=== PATIENT | male | born 1945 | race Caucasian/White ===

== ENCOUNTER 2022-03-02 16:39 | Inpatient (IN) | payer MEDICARE, OTHER ==
[~2022-03-02] VITALS: Ht 175.3 cm; Wt 71.0 kg
--- NOTE | 2022-03-02 19:30 | NUR ---
pt ARRIVED FROM ED ON ED STRETCHER AND TANSFERRED VIA 4PA, TOLERATED WELL. pt ORIENTED TO ROOM, CALL LIGHT IN REACH AND VSS. ROSA ISELA ALSO IN ROOM AND ATTENTIVE. pt ON REGULAR DIET, FRESH ICE WATER PROVIDED PER pt REQUEST. NO ADDITIONAL NEEDS.
--- NOTE | 2022-03-02 20:27 | NUR ---
CALL RECEIVED FROM ED RN ARGENIS WHO WORKED ON [employer] AND CARED FOR pt IN ED EARLIER. PER MICHAEL MORE, pt HAD NEW BUNDLE BRANCH BLOCK WHICH WAS CONFIRMED W/ EKG, BUT pt HAS NO CARDIAC HX. DISCUSSED WITH DR PARRISH PER REQUEST OF [facility] PLAYERMICHAEL MORE, DR PARRISH DID NOT WANT A TROPONIN, BUT TELEPHONE ORDERS READ BACK FOR TELE MONITORING. ALSO UPDATED DR PARRISH ON RESULTS OF RIGHT FEMUR X-RAY, NO FRACTURE NOTED PER RESULTS. OKAY TO PLACE ICE PER MD FOR EDEMA/COMFORT. PER MD, NO LIMITATIONS W/ MOVEMENT, ENCOURAGE AMBULATION, AMBULATE TOLERATED. PRIMARY RN LAWANDA UPDATED.
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
--- NOTE | 2022-03-02 23:30 | NUR ---
PATIENT CALLED NURSE INTO ROOM AND REPORTED PAIN 8/10 SHARP IN RIGHT THIGH. PATIENT APPEARS TO BE BREATHING EVEN AND REGULAR, PULSE OX 98% ON RA, RR 16. ADMINISTERED 0.5 MG IV DILAUDID PER MAR FOR BREAKTHRU PAIN, 4MG ZOFRAN IV PER MAR, AND 1 TAB NORCO PO. PATIENT EATING SALTINE CRACKERS. VOIDED 200 ML OF DARK YELLOW URINE. PATIENT RESTING BACK, REFUSES FRESH ICE PACK. PEDAL PULSE AND POPLITEAL PULSE STRONG, SKIN WARM.
--- NOTE | 2022-03-03 00:29 | NUR ---
PATIENT NOW RESTING CALMLY WITH EYES CLOSED, UPON ENTERING ROOM PATIENT OPENED EYES AND REPORTED PAIN 2/10 ON PAIN SCALE AND VERBALIZED FEELING LIKE HE COULD GET SOME SLEEP.
--- NOTE | 2022-03-03 02:25 | NUR ---
INTO ROOM TO PROVIDE ASSESMENT, LUNG SOUNDS AUCULTATE CLEAR IN THE UPPER LOBES REBECA, COURSE AND DIMINISHED IN THE BASES. PROVIDED EDUCATION WITH INCENTIVE SPIROMETER. PATIENT ABLE TO INHALE AND HOLD WAFER AT 1500 ML. DISCUSSED BENEFITS OF TAKING DEEP BREATHS AND COUGHING. PREVENTION OF PNEAMONIA. PATIENT DEMONSTRATED UNDERSTANDING. OXYGEN SATURATION 98% RA, RR 16. PATIENT RATES PAIN 3/10 ON PAIN SCALE, REPORTS PAIN TOLERABLE AND ABLE TO SLEEP. NO OTHER NEEDS AT THIS TIME.
--- NOTE | 2022-03-03 04:07 | NUR ---
ROUNDED ON PATIENT TO ASSESS PAIN CONTROL. PATIENT RESTING WITH EYES CLOSED, APPEARS CALM, BREATHING EVEN AND REGULAR. 02 SATURATION ON CONTINIOUS PULSE OX 98% RR 18.
--- NOTE | 2022-03-03 05:34 | NUR ---
PATIENT AWAKE, REPORTS PAIN TOLERABLE. ADMINISTERED PAIN MEDICATION PER AUG, PATIENT PLANNING TO GET UP THIS MORNING. VSS WNL. ICE TO RIGHT THIGH, NOTED SWELLING AND EDEMA. LUNG SOUNDS DIMINISHED IN BASES REBECA. O2 SATURATION 100% ON ROOM AIR, RR 16
--- NOTE | 2022-03-03 07:37 | NUR ---
REPORT RECEIVED FROM MICHAEL WEBBER. PT SITTING UP ON EDGE OF BED. PT REPORTS 3/10 PAIN "NOW IN MY BACK." PT DENIES NAUSEA. OXGYEN SAUTRAITON OF 96% ON ROOM AIR. BUNDLE BRANCH BLOCK NOTED ON TELEMETRY WITH HR IN JOSH 60'S. PT DENIES ADDITIONAL NEEDS AT THIS TIME. CALL LIGHT WITHIN REACH. BED RAILS UP.
--- NOTE | 2022-03-03 09:26 | NUR ---
MORNING ASSESSMENT AND MEDICATION DUE. PT RESTING IN BED. REPORTS 3/10 PAIN IN BACK AND RIGHT LEG. PT DENIES NAUSEA BUT BEGINS TO FEEL NAUSEOUS WITH PAIN MEDICAITON ADMINISTRATION. PT UP TO CHAIR WITH FWW AND STAND BY ASSIST. PT REPORTS INCREASED PAIN TO RIGHT THIGH AREA WITH ACTIVITY. THIGH PAIN UP TO 7/10. RIGHT THIGH VERY FIRM TO TOUCH AND MUCH MORE SOWLLEN THAN LEFT LEG. RIGHT KNEE ALSO NOTED TO BE SWOLLEN. STRONG PEDIAL AND TIBILAIS PULSES NOTED. PT UNABLE TO LIFT LEG STRIGHT UP. STRONG PLANTAR AND DORSI FLEXION NOTED BILATERALLY ALTHOUGH WEAKER ON RIGHT SIDE. CAP REFILL >3 SECONDS ON RIGHT SIDE. PT ALERT AND OREINTED TO ALL. DENIES NUMBNESS AND TINGLING. LUNG SOUNDS DEMINISHED IN LOWER LOBES. OXGYEN SATURATION OF 97% ON ROOM AIR. CPOX IN PLACE. DEMINISED MORE ON RIGHT SIDE THAN LEFT. PT DEMONSTRATES USE OF I.S REACHIGN 1250ML X10. PT DENIES SHORTNESS OF BREATH BUT REPORTS HE IS "BREATHING SHALLOW." PT HAS BRADYCARDIC EPISODE DURING INCREASED PAIN WITH HR DROPPING TO THE 40'S. PT RECOVERS TO HR OF 50'S AFTER PAIN IS CONTROLLED. BUNDLE BRANCH BLOCK NOTED ON TELEMETRY MONITORING. PT DENIES CHEST PAIN. DR PARRISH CALLED AND UPDATED ON PT STATUS AND ASSESSMENT. DR PARRISH STATES SHE IS COMING IN TO EVALUATE PT. PT REMAINSUP TO CHAIR. DENIES DIZZINESS. CALL LIGHT WITHIN REACH.
--- NOTE | 2022-03-03 09:52 | NUR ---
PTS HEART RATE DROPPING AGAIN INTO THE 40'S. PT BACK TO BED WITH STAND AND PIVOT ASSIST. PT REPORTS NAUSEA. HEART RATE IMPROVES BACK TO THE 70'S. PT REPORTS SEVERE INCREASE IN RIGHT THIGH WITH ANY MOVEMENT. NAUSEA RESOLVES WITH REST. PT DENIES CHEST PAIN. AWIATING MD ARRIVAL. BED RAILS UP. CALL LIGHT WITHIN REACH.
--- NOTE | 2022-03-03 10:09 | NUR ---
THIS RN TO ROOM TO CHECK ON PT. PT GRIMICING WITH PAIN IN RIGHT THIGH. PT REPORTS 6/10 PAIN. RIGHT LEG VISUALLY MUCH LARGE THAN LEFT. TELEMETRY MONITORING CONTINUES TO SHOW BUNDLE BRANCH BLOCK WITH MD ARRIVED TO BEDSIDE. EKG ORDERED, ORDER PLACED, RT CALLED AND TO BEDSIDE. MD AT BEDSIDE PERFORMING ULTSOUND OF LEFT THIGH. EKG TAKEN AND HANDED DIRECTLY TO DR. PARRISH. PTS UPDATED ON PLAN OF CARE. PT VERBALIZES UNDERSTANDING OF PLAN OF CARE.
--- NOTE | 2022-03-03 10:47 | NUR ---
DR PARRISH AT BEDSIDE TO TRY TO REMOVE FLUID FROM RIGHT THIGH WITH NEEDLE ASPIRATION, UNSUCESSFUL. PAULINE WRAP APPLIED TO RIGHT THIGH BY DR PARRISH. NEW LAB ORDERS GIVEN, ENTERED AND REPEAT BACK PERFORMED. DR. PARRISH STATES TO GIVE ADDITIONL DOSE OF PAIN MEDICATION. 5ML LAB DRAW WITH 22G BUTTERFLY NEEDLE, GAUZE AND COBAN APPLIED. LABS VIALED AND SENT TO LAB BY SONIA TANG TECHNJEFF. EXTENSIVE EDUCATION DONE BY MD WITH PT AND FAMILY REGARDING FRACTURES AND PLAN OF CARE. NO ADDITONAL NEEDS AT THIS TIME. CALL LIGHT WITHIN REACH. BED RAILSUP.
--- NOTE | 2022-03-03 11:42 | NUR ---
PTS FAMILY TO NURSES STATION REPORTING PT IS HAVING INCREASED PAIN. PT NOW RATES RIGHT THIGH PAIN AT 7/10. STRONG PEDIAL PULSES NOTED, FOOT WARM TO TOUCH. PT DENIES NUBMENSS TO RIGHT LET STATING "IT JUST HURTS LIKE HELL." DR. PARRISH UPDATED AND TO BEDSIDE. LIDOCANE PATCH ORDERD. PT ASSISTED WITH REPOSITIONING WHICH HE STATES HELPS. AWAITING MEDICATION FROM PHARAMCY. NO ADDITONAL NEEDS AT THIS TIME. CALL LIGHT WITHIN REACH. BED RAILS UP.
--- NOTE | 2022-03-03 12:25 | NUR ---
THIS RN TO ROOM WITH LIDOCANE PATCH. PT REPORTS INCREASED PAIN. LEFT LEG SWOLLEN AND MORE FIRM. PLUSES REMAINS STRONG. SENSATION REMAINS INTACT. DR. PARRISH TO BEDSIDE. 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 PRESSURE GAUGE RETIREVED AND BEDSIDE PRESSURE MEASURE TO RIGHT THIGH READS >90. COATER OPERATOR CALLED TO PREP OR. CONSENT SIGNED. CG WIPE DOWN PERFORMED. PRE OP CHECK LIST PERFORMED. ADDITIONAL IV STARTED TO LEFT FORARM, BRISK BLOOD RETURN NOTED. OR FLUIDS, LR ON STRAIGHT TUBING STARTED PER DR. PARRISH. PT CONTINUES TO REPORTS 10/10 PAIN IN RIGHT THIGH. PT CONTINUES TO REPORT NASUEA, WHICH HE ATTRIBUTES TO THE PAIN. AWAITING OR TEAM ARRIVAL. NO ADDITONAL NEEDS. BED RAIL SUP. CALL LIGHT WIHTIN REACH.
--- NOTE | 2022-03-03 13:00 | NUR ---
KATTY, COIL CONNECTOR TO ROOM TO ELOCUTION TEACHER PT. REPORT GIVEN TO KATTY WHO STATES HIS QUESTIONS HAVE BEEN ANSWERED. PT TO OR.
--- NOTE | 2022-03-03 14:14 | NUR ---
I was able to visit with Rayray's while he was in the OR today. states that they are happy with the care Rayray has received. also states that she feels she will be able to care for him at home on discharge, she adds that Rayray has medicare and possible coverage through [facility], patient does not have workman's comp insurance.
--- NOTE | 2022-03-03 14:42 | NUR ---
03/03/22 1442 Estela Roy 1404 ARRIVED VIA BED FROM OR3 AT THIS TIME, NATURAL AIRWAY AT THIS TIME, AIRWAY HELP BY CHYNA, RN O2 VIA NC AT 4L'S. RT THIGH DRESSING CDI.
--- NOTE | 2022-03-03 15:14 | NUR ---
PT RETURNED FROM PACU. REPORT RECEIVED FROM MICHAEL DECKER. PT RESTING IN BED AND REPORTS 0/10 PAIN WELL NO NAUSEA. PT PLACED ON CPOX AND IS MAINTAINING OXGYEN SATURATIONS ABOVE 94% ON ROOM AIR. HEART RATE IN THE 90'S. DR. PARRISH AT BEDSIDE AND SATES TO DC TELEMETRY MONITORING. ADDITONAL ORDERS GIVEN TO CHAGNE LIDOCANE PATCHES TO PRN AND THAT PT IS NOT TO BE DISCHRAGED. DISCHARGE ORDER DC'D. LIDOCANE PATCH ORDER ADJUSTED. PT ALERT AND OREINTED TO ALL. LUNG SOUNDS CLEAR IN UPPER LOBES, DEMINISHED IN BASES, MORE SO ON RIGHT SIDE. HEART TONES REGULAR. HEART RATE NOW IN THE 90'S. TELE DC'D PER MD ORDER. STRONG PEDIAL AND TIBIAL PULSES NOTED BILATERALLY. PT REPORTS NORMAL SENSATION. STRONG PLANTAR AND DORSI FLEXION NOTED. DRESSING TO RIGHT THIGH C/D/I WITH NO DRAINAGE NOTED. CAPILLARY REFILL TO RIGHT FOOT NOW <3 SECONDS. PT WATCHING RODEO ON HIS PHONE. NO ADDITIONAL REQUESTS OR COMPLAINTS. CALL LIGHT WITHIN REACH. BED RAILS UP.
--- NOTE | 2022-03-03 16:13 | NUR ---
VITALS AND ASSESSMENT DUE. PT RESTING IN BED. PT CONTINUES TO REPORTS 0/10 PAIN IN BOTH RIGHT THIGH AND BACK. PT DENIES NEED FOR PAIN MEDICATION. DRESSING C/D/I WITH NO DRAINAGE NOTED. CMS INTACT, STRONG PEDIAL AND TIBIAL PULSES NOTED BILATERALLY. PT REPORTS NORMAL SENSATION. OXGYEN SATURATION ABOVE 94% ON ROOM AIR. ICE WATER REFILLED. NO ADDITIONAL REQUESTS OR COMPLAINTS. CALL LIGHT WITHIN REACH. BED RAILS UP.
--- NOTE | 2022-03-03 17:10 | NUR ---
VITALS AND ASSESSMENTS DUE. PT REPORTS / "PRESSURE" PAIN IN LEFT THIGH AND REQUESTS PAIN MEDICATION. DRESSING SHOWS 5CM X7CM AREA OF RED DRAIANGE ON POSTERIOR, PROXIMAL PART OF DRESSING. CMS REMAINS INTACT WITH STRONG PEDIAL AND TIBIAL PULSES NOTED. CAPILLARY REFILL LESS THAN 3 SECONDS. GENERALIZED SWELLING REMAINS. DRESSING OTHERWISE C/D/I. PAIN MEDICATION GIVEN. PT REPORTS "PAIN MEDICINE IS HELPING." NO ADDITIONAL NEEDS AT THIS TIME. CALL LIGHT WITHIN REACH. BED RAILS UP.
--- NOTE | 2022-03-03 17:36 | EKG ---
[facility] [address] [facility] [place] [address] Signed Sinus bradycardia Left bundle branch block Abnormal ECG No previous ECGs available Confirmed by MANDEEP FOSTER MD ([id number]) on 03/03/2022 5:36:27 PM Electronically Signed By: MANDEEP FOSTER MD 03/03/22 1736 PATIENT NAME: SUPRIYA EPSTEIN Electrocardiogram DATE OF : 49 PHYSICIAN: MANDEEP FOSTER MD REPORT #: [id number] REPORT IS CONFIDENTIAL AND NOT TO BE RELEASED WITHOUT AUTHORIZATION
--- NOTE | 2022-03-03 17:37 | EKG ---
[facility] [address] [facility] [place] [address] Signed Sinus bradycardia Left bundle branch block Abnormal ECG When compared with ECG of 02-MAR-2022 16:47, (Unconfirmed) No significant change was found Confirmed by MANDEEP FOSTER MD ([id number]) on 03/03/2022 5:37:32 PM Electronically Signed By: MANDEEP FOSTER MD 03/03/22 173 PATIENT NAME: SUPRIYA EPSTEIN Electrocardiogram DATE OF : 49 PHYSICIAN: MANDEEP FOSTER MD REPORT #: [id number] REPORT IS CONFIDENTIAL AND NOT TO BE RELEASED WITHOUT AUTHORIZATION
--- NOTE | 2022-03-03 18:04 | NUR ---
VITALS AND ASSESSMENT DUE. PT RESTING IN BED. PTS ARRIVED TO BEDSIDE AND IS UPDATED ON PLAN OF CARE. PT REPORTS 1/10 PAIN IN RIGHT THIGH. 0/10 PAIN IN BACK. PT DENIES NEED FOR ADDITIONAL PAIN MEDICAITON AT THIS TIME. DRESSING NOW ~15% SATURATED ON PROXIMAL POSTERIOR END OF DRESSING WITH RED DRAINAGE. CMS REMAINS INTACT, STRONG PEDIAL AND TIBILA PULSES NOTED. PLANTAR AND DORSIFLEXION UNCHANGED. PT DENIES ADDITIONAL REQUESTS OR COMPLAINTS. CALL LIGHT WITHIN REACH. BED RAILS UP.
--- NOTE | 2022-03-03 18:22 | NUR ---
DR PARRISH CALLED AND UPDATED ON PT STATUS, PAIN, AND DRESSING. NO ADDITIONAL NEW ORDERS. PT AND FAMILY UPDATED. CALL LIGHT WITHIN REACH. BED RAILS UP. NO ADDITIONAL REQUESTS OR COMPLAINTS.
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
--- NOTE | 2022-03-03 18:48 | NUR ---
LINENS CHANGED AND CHUX PLACED UNDER PT TO CATCH DRAINAGE. PT TOLERATED LINEN CHANGE WELL WITH ONGOING 1/10 PAIN TO RIGHT THIGHT. PT NOTED TO BE INSUFFICIENT WITH URINE OUTPUT. DR. PARRISH CALLED, NO ANSWER, AWAITING CALL BACK. PT ENCORUAGED TO DRINK PO FLUID AND STATES "I CAN DO THAT." NO ADDITIONAL NEEDS AT THIS TIME. CALL LIGHT WITHIN REACH. BED RAILS UP.
--- NOTE | 2022-03-03 18:53 | NUR ---
DR. PARRISH REACHED BY PHONE. DR PARRISH UPDATED ON PTS VOIDING STATUS. ORDERS GIVEN FOR 1000ML LR BOLUS NOW TO BE GIVEN OVER 3 HOURS. FLUIDS STARTED (SEE MAR). NO ADDITIONAL NEEDS AT THIS TIME. CALL LIGHT WITHIN REACH.
--- NOTE | 2022-03-03 19:24 | NUR ---
NATALIO AND I CHANGED PATIENT'S BED LINENS. A LITTLE BEFORE SHIFT CHANGE.
--- NOTE | 2022-03-03 20:35 | NUR ---
DRESSING TO RIGHT THIGH IS SATURATED AT THIGH, SUPER ABSORBAND PAD SATURATED WEIGHING 30 GRAMS. PATIENT ABLE TO TURN, REPORTS PAIN 3/10 ON PAIN SCALE PATIENT REPORTS TOLERABLE. LUNG SOUNDS DIMINISHED IN BASES BILATERALLY PATIENT DEMONSTRATED ICENTIVE SPIROMETER TO 1500 ML. FULL BODY ASSESMENT DONE. BOLUS INFUSING, PATIENT VOIDED 50 ML OF CONCENTRATED URINE. FRIEND INTO VISIT PATIENT, PATIENT CONVERSING EASILY. VSS WNL.
--- NOTE | 2022-03-03 22:20 | NUR ---
IV FLUID BOLUS COMPLETE, IV SITE WNL AND PUMP CLEARED. NO ADDITIONAL NEEDS, CALL LIGHT IN REACH.
--- NOTE | 2022-03-04 02:30 | NUR ---
0200 PATIENT REPORTS PAIN 5/10 ON PAIN SCALE, ADMINISTERED PO PAIN MEDICATION PER MAR. VS WNL. LUNG SOUNDS CLEAR UPPER LOBES, DIMINISHED IN BASES R SIDE GREATER THAN LEFT. PATIENT USING IS, ABLE TO FLOAT WAFER TO 1500 ML. PATIENT VOIDING QUANTITY SUFFICIENT, NOTED URINE APPEARS DARK AND CONCENTRATED. DRESSING TO RIGHT LEG IS SATURATED WITH BLOOD, SUPER ABSORBANT PAD WEIGHED [address] MLS[address] PARRISH MADE AWARE OF COLOR OF URINE AND EBL FROM SURGICAL SITE OF RIGHT THIGH ON THE ABSORBANT PADS. DR. PARRISH VERBALIZED THAT SHE WAS OKAY WITH THE URINE OUTPUT AND COLOR OF THE URINE. ALSO THAT THE AMOUNT OF EBL ON THE PADS WAS A GOOD SIGN. NO NEW ORDERS CONTINUE POC. REASSURED PATIENT AND UPDATED WITH WHAT DR. PARRISH VERBALIZED.
--- NOTE | 2022-03-04 06:00 | NUR ---
LUNG SOUND CLEAR UPPER BASES, DIMINISHED IN LOWER BASES. PATIENT GAURDED WITH COUGHING, ENCOURAGED TO USE IS. ADMINISTERED 0.5MG DILAUDID IV FOR BREAKTHROUGH PAIN, PATIENT RATED PAIN 5/10 ON PAIN SCALE. PATIENT GRIMACING WITH MOVMENT. APPLIED LIDOCAINE PATCH TO MID BACK. PATIENT SITTING UP IN 90 DEGREE ANGLE. VS WNL.
--- NOTE | 2022-03-04 07:17 | NUR ---
REPORT RECEIVED FROM MICHAEL WEBBER. PT RESTING ON BACK IN BED WITH EYES CLOSED. RESPIRATIONS EVEN AND UNLABORED. HEAD OF BED ELEVATED TO 30 DEGREES. BED RAILS UP. CALL LIGHT WITHIN REACH. PT ALLOWED TO REST.
--- NOTE | 2022-03-04 07:19 | NUR ---
REPORT RECEIVED FROM MICHAEL WEBBER. PT RESTING IN BED IN SEMI ORTEGA POSITIONG, HEAD OF BED ELEVATED TO 20 DEGREES. PT REPORTS 2/10 PAIN IN CENTRAL BACK. PT DENIES NEED FOR ADDITIONAL PAIN MEDICATION. PT DENIES NAUSEA. PT REPORTS HE IS MEDITATING AND TRYING TO REST. NO ADDITIONAL REQUESTS OR COMPLAINTS. CALL LIGHT WITHIN REACH. BED RAILS UP.
--- NOTE | 2022-03-04 08:42 | NUR ---
MORNING ASSESSMENT AND MEDICATION DUE. PT TALKING WITH A FRIEND ON THE PHONE. PT NOTED TO STUTTER WITH HIS WORDS OCCATIONALLY. PT REPORTS 2/10 MID BACK SHARP STABBING PAIN. PT DENIES NEED FOR PAIN MEDICATION "UNLESS I HAVE TO MOVE." PRN PAIN MEDICATION GIVEN IN ANTICIPATION OF MOVEMENT AND DRESSING CHANGE TO RIGHT LEG. PT ALERT AND OREINTED TO ALL. PT DECLINES TIME UP TO CHAIR AT THIS TIME STATING HE IS "WORRIED" ABOUT GETTING UP AND THE PAIN. EDUCATON DONE WITH PT REGARDING PAIN MANAGEMENT. PT REMAINS IN BED AT THIS TIME. HEART TONES IRREGULAR, ALSO NOTED ON EKG FROM YESTERDAY. LUNG SOUNDS CLEAR ALTHOUGH DEMINISHED IN LOWER LOBES AND VERY DEMINISHED ON RIGHT LOWER LOBE. OXGYEN SATURATION AT 96% ON ROOM AIR. CPOX IN PLACE. CMS INTACT. STRONG TIBIAL AND PEDIAL PULSES NOTED. GENERALIZED EDEMA TO RIGHT UPPER LEG ONGOING, IMPROVED FROM YESTERDAY. LEG NO LONGER TIGHT TO TOUCH. PT NOT VOIDING QUANTITY SUFFICIENT, WATER, JUICE, COFFEE AND MILK PROVIDED. PT REPORTS FEELING MUCH BETTER TODAY. NO ADDITONAL REQUESTS OR COMPLAINTS. CALL LIGHT ROGERCommand InformationJAD REACH. BED RAILS UP.
--- NOTE | 2022-03-04 09:22 | NUR ---
DR. PARRISH TO BEDSIDE FOR ROUNDS AND DRESSING CHANGE. PT VERBLAIZES UNDERSTANDING OF PLAN OF CARE. DR. PARRISH UPDATED ON PT ASSESSMENT AND INADEQUATE URINE, BLOOD LOSS, LAB VALUES, AND GENERAL PT STATUS. NEW ORDERS PLACED. PO FLUIDS ENCOURAGED. DRESSING TO RIGHT THIGH REMOVED. PHOTOGRAPH CONSENT SIGNED. PHOTOGRAPHS TAKEN. TAKEN. PT TOLERATES DRESSING CHANGE WITH PAIN AT 2/10 IN RIGHT THIGH DURING DRESSING CHANGE. NEW DRESSING C/D/I. NO ADDITONAL NEW ORDERS. MEDICAITON GIVEN. PT ENCOAURGED TO GET UP TO CHAIR. PT DECLINES AT THIS TIME. PERFERING TO REST. NO ADDITIONAL REQUESTS OR COMPLAINTS. CALL LIGHT WITHIN REACH. BED RAILS UP.
--- NOTE | 2022-03-04 10:30 | NUR ---
THIS RN TO ROOM TO CHECK ON PT. PT AGREES TO GET UP TO CHAIR. 1 PERSON ASSIST UP TO EDGE OF BED. PT LETS RIGHT LEG HANG, NO SEVERE PAIN WITH PASSIVE MOTION. PT REPORTS 3/10 PAIN IN RIGHT LEG WITH MOVEMENT AND 4/10 PAIN IN RIGHT BACK WITH MOVEMENT. 1 PERSON ASSIST AND FWW UP TO CHAIR. PT REQUESTS LEG BE ELEVATED AT 45 DEGREES FOR SOME TIME. RECLINER UP AT 45 DEGREES. PT REPORTS PAIN IN RIGHT LEG IMPROVES TO 0/10 WITH REST AND PAIN IN RIGHT BACK TO 2/10 WITH REST. PT DENIES NEED FOR ADDITIONAL PAIN MEDICATION. OXGYEN SATURATION AT 97% ON ROOM AIR. NO ADDITIONAL NEEDS AT THIS TIME. CALL LIGHT WITHIN REACH.
[2022-03-04] MEDS ORDERED: ARNICA120 ML TOP (10:53)
[2022-03-04] MEDS ORDERED: ARNICA120 ML SL (10:54)
[2022-03-04] MEDS ORDERED: VOLTAREN ARTHRI20 GM TOP (10:56)
--- NOTE | 2022-03-04 11:40 | NUR ---
THIS RN TO ROOM TO CHECK ON PT. PT REMAINS UP TO CHIAR. PT HAS LOWERED RECLINDER LEG SUPPORTS TO 20 DEGREES AND STATES HE CAN FEEL "JUST A MILD STRETCH" TO HIS RIGHT THIGH. PT REPORTS 1/10 PAIN IN RIGHT THIGH AND 2/10 PAIN IN BACK. PT DENIES NEED FOR ADDITIONAL PAIN MEDICATION AT THIS TIME STATING PAIN IS WELL CONTROLLED. 100ML DARK YELLOW URINE REMOVED FROM URINAL. NO ADDITIONAL REQUESTS OR COMPLAINTS. OXGYEN SATURATION AT 96% ON ROOM AIR. CALL LIGHT WITHIN REACH.
--- NOTE | 2022-03-04 12:18 | NUR ---
DRESSING SUPPLIES BROUGHT TO ROOM FOR MD USE WHEN DRESSING CHANGE IS NEEDED. PT REMAINS UP TO CHAIR. VISITING WITH FRIEND. ICE PROVIDED PER PT REQUEST. PT REPORTS PAIN CONTINUES TO BE WELL CONTROLLED. NO ADDITIONAL NEEDS AT THIS TIME. CALL LIGHT WITHIN REACH.
--- NOTE | 2022-03-04 12:26 | NUR ---
REPORT GIVEN TO MICHAEL MEJIA. WHO IS ASSUMING CARE OF PT.
--- NOTE | 2022-03-04 15:44 | NUR ---
RESTING, IN BED, R LOWER HIP AREA DRESSING INTACT. COOP. EYES CLOSED, NO C/O PAIN, EDEDEMA NO CHAGNES. CALL LIGHT AND FLUIDS AT BEDSIDE
--- NOTE | 2022-03-04 17:02 | NUR ---
Patient takes no chronic medications
--- NOTE | 2022-03-04 18:16 | NUR ---
PT ON ROOM AIR, MEDICATED A FEW MINUTS AGO PER PAIN r LEG, cdb AND USE OF is ENCOURAGED AND HANDS ON DEMONSTRATION DONE AFTER MUCH ENCOURAGEMENT. ON ROOM AIR, LUNGS DIM AT BASES FINE CRACKLES ON R SIDE, CPOX AT BEDSIDE. TENDER R SIDE FROM FX RIBS. SANGUINEOUS DRAINGE NOTED UNDER R LOWER HIP AREA . REINFORCED WITH ABD'S AND PAULINE WRAP. PULSES DIM BUT PALPABLE R KNEE AREA, EDEMATOUS. DOING EXERCISES PER MD GANT. PEDAL PULSES STRONG. HELPED WITH REPOSITIONING. NOT EATING MUCH, POOR APPETITE, HAS HOME BROUGHT ENSURES AT BEDSIDE. VOIDING QS THIS SHIFT. CONT TO REINFROCE DRESSING AND CALL MD IN INCREAED DRAINAGE, SEE ORDERS FRO DRESSING CHANGES AND LOW UO. ENCOURAGE PAIN MED USAGE/PAIN CONTROL TO INCREASE CDB AND IS USAGE TO PREVENT PNEUMONIA . PT INSTRUCTED, STAED UNDERSTANDING. PLEASANT AND COOPERATIVE, VISIITED WITH FAMILY EARLIER. CONT W POC.
--- NOTE | 2022-03-04 22:00 | NUR ---
FULL BODY ASSESMENT DONE, PATIENT ABLE TO USE IS MOVE WAFER TO 1100 ML. PATIENT LUNG SOUNDS DIMINISHED IN BASES. DRESSING TO R LEG APPEARS SATURATED, CHANGED SUPERABSORBANDT PAD UNDER DRESSING 40 GRAMS. PATIENT DENIED NEED FOR ANY PAIN MEDICAITON AT THIS TIME.
--- NOTE | 2022-03-05 03:45 | NUR ---
PATIENT IS RESTING IN BED. PATIENT RATES PAIN AT A 2/10 IN HIS RIGHT LEG AND BACK. PRN PAIN MEDICATION GIVEN PER ORDER. PATIENT DENIES ANY FURTHER NEEDS CALL LIGHT IN REACH.
--- NOTE | 2022-03-05 04:06 | NUR ---
INTO CHECK ON PATIENT, PATIENT APPEARS AWAKE. PATIENT REPORTS WORKING ON BREATHING EXERCISES AND REPORTS PAIN WITH INSPIRATION 5/10 ON PAIN SCALE. PATIENT REQUESTING PAIN PILL. PROVIDED PATIENT APPEARS TO BE VOIDING QUANTITY SUFFICIENT, URINE APPEARS DARK AND CONCENTRATED.
--- NOTE | 2022-03-05 07:38 | NUR ---
REPORT FROM RICKEY WEBBER RN.
--- NOTE | 2022-03-05 07:54 | NUR ---
DR. PARRISH IN TO CLOSE RIGHT THIGH FASCIOTOMY, LET PATIENT KNOW THAT HE SHOULD KEEP SUTURES IN FOR AT LEAST 10 DAYS AND THEN HIS PCP MAY REMOVE. RIGHT THIGH COVERED WITH 4X4 FLUFF, ABD'S AND PAULINE WRAP. PATIENT RATES PAIN 1/10 TO RIGHT THIGH POST CLOSURE. PATIENT RATES RIGHT RIB PAIN 1/10 AT REST .
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
--- NOTE | 2022-03-05 10:17 | NUR ---
PATIENT GIVEN ONE NORCO FOR 3/10 UPPER BACK PAIN. PATIENT IS USING I/S FREQUENTLY.
--- NOTE | 2022-03-05 11:05 | NUR ---
Rayray is awake alert and oriented today. He feels that his care has been good in the hospital, he feels that his pain has been managed well by the staff. Call light has been answered in a timely manner, and he feels that his room has been kept clean. He also feels that the nurses are explaining his medications and the side effects of the medications. He is aware that Dr. Lal will be assuming his care today and he "thinks" he may go home Saturday or Saturday. He states that his can help him at home, she may be gone some, but they feel that he can get assistance in the home from people they know if needed. Rayray denies questions or concerns from me at this time.
--- NOTE | 2022-03-05 11:15 | NUR ---
PATIENT IS RESTING IN BED, REPORTS THAT HE IS COMFORTABLE POST PAIN MEDICATIONS.
--- NOTE | 2022-03-05 12:06 | NUR ---
REASSED PATIENT PAIN AND EMPTIED URINAL. ASSISTED PATIENT FROM BED TO CHAIR. READY FOR LUNCH. PATIENT REPORTS NO FURTHER NEEDS AT THIS TIME.
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
--- NOTE | 2022-03-05 16:08 | NUR ---
PATIENT DID NOT WANT TO WALK PATIENT WANTED TO GO BACK TO BED. HE SAID HE WILL WALK LATER.
--- NOTE | 2022-03-05 21:13 | NUR ---
TELEPHONE PHONE CALL TO DR. PAULSON. NOTIFIED OF PATIENT WANTING TO TAPER BACK FROM OPIODS. STATES " I JUST DON'T FEEL LIKE I CAN THINK STRAIGHT" NOTED HIS COGNITION DOES APPEAR FOGGY. DR. PAULSON VERBALIZED OKAY, CHANGE TYLENOL ORDER TO 1 GRAM Q6PRN. PATIENT UPDATED ON POC, PATIENT VEARBALIZES SATISFACTION WITH POC.
--- NOTE | 2022-03-05 21:36 | NUR ---
PATIENTS VITALS TAKEN AND RECORDED. PATIENTS INTAKE AND OUTPUT RECORDED. PATIENT ABLE TO AMBULATE FROM ROOM 122 TO RN STATION AND BACK TO BED. PATIENT IS BACK IN BED RESTING. CPOX IN USE. NO FURTHER NEEDS NOTED. CALL LIGHT IN REACH.
--- NOTE | 2022-03-05 22:40 | NUR ---
PATIENT HAD NOTED INCREASED SWELLING TO RIGHT KNEE AFTER AMBULATING HALLS, SKIN HOT TO TOUCH, STRONG POPITEAL AND PEDAL PULSE TO LEG. PATIENT ALSO HAVING APHASIA, WHEN SPEAKING APPEARS TO HAVE TROUBLE FINDING WORDS (WORD SALAD). PATIENT AWARE AND APPEARS FRUSTRATED WITH THIS. CALL TO DR. PAULSON, VERBALIZED TO HOLD OPIODS, NEW ORDER FOR TYLENOL SEE MAR, AND OKAY TO APPLY ICE. ALSO ENCOURAGE PATIENT TO REST AND NOT AMBULATE. UPDATED PATIENT.
--- NOTE | 2022-03-06 05:23 | NUR ---
PATIENT APPEARS TO HAVE RESTED WELL THROUGHOUT THE NIGHT, WHEN CHECKING ON PATIENT, APPEARS TO BE BREATHING EVEN AND REGULAR. RR 18.
--- NOTE | 2022-03-06 06:16 | NUR ---
PATIENT APPEARS TO BE ABLE TO SPEAK CLEARLY THIS MORNING, VERBALIZING HIS PAIN IS CONTROLLED CLEARLY AND THAT LAB HAD DRAWN BLOOD. SWELLING TO RIGHT LEG APPEARS DECREASED AND SKIN IS NOW WARM TO TOUCH RIGHT LEG. LEG ELEVATED ON PILLOWS, CHUX PAD CHANGED WEIGHED 10 GRAMS. PATIENT REQUESTED NOT TO HAVE ICE PLACED ON LEG AT THIS TIME, AND DENIES NEED FOR ANY TYLENOL AT THIS TIME. PATIENT EASILY WENT BACK TO SLEEP, APPEARS TO BE SNORING SOUNDLY. PROVIDED FRESH ICE WATER. CALL LIGHT WITHIN REACH. NO OTHER NEEDS AT THIS TIME.
--- NOTE | 2022-03-06 07:24 | NUR ---
REPORT RECEIVED FROM MICHAEL WEBBER. PT RESTING IN BED, ALERT AND ORINETED, SPEECH CLEAR. HEAD OF BED ELEVATED TO 20 DEGREES. PT DENIES PAIN IN BOTH BACK AND LEG " LONG IM' RESTING." RIGHT THIGH BANDAGE CONTINUES TO SHOW RED DRAINAGE, MONITORING. PT DENIES NAUSEA. NO ADDITIONAL REQUESTS OR COMPLAINTS. CALL LIGHT WITHIN REACH. BED RAILS UP.
--- NOTE | 2022-03-06 08:21 | NUR ---
MORNING ASSESSMENT AND MEDICAITON DUE. PT RESTING IN BED WITH EYES CLOSED. HEAD OF BED ELEVATED TO 23 DEGREES. RESPIRATIONS EVEN AND UNLABORED. PT AWAKENS TO VOICE. PT ALERT AND ORIENTED TO ALL. 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 PT REPORTS 0/10 PAIN IN BOTH RIGHT THIGH AND RIGHT BACK/CHEST. PT DENIES NEED FOR PAIN MEDICAITON AT THIS TIME. PT REPORTS NO PAIN " LONG I'M NOT MOVING." NOTED THAT PT DOES GRIMICE WHEN MOVING IN BED DURING ASSESSMENT AND WITH PASSIVE KNEE BEND. PT REPORTS 3/10 PAIN IN RIGHT THIGH WITH PASSIVE KNEE BEND. STRONG PLANTAR AND DORSI FLEXION NOTED BILATERALLY WITH NO INCREASE IN PAIN. STRONG BILATERAL PULSES NOTED. NORMAL SENSATION TO BILATERAL FEET/LEGS. DRESSING INTACT TO RIGHT THIGHT, ~15% SATURATED WITH RED DRAINAGE. CHUX UNDER PTS LEG CHANGED. 10ML OF RED DRAINAGE BY WEIGHT. PT REPORTS FEELING "VERY TIRED." LUNG SOUNDS CLEAR, MILDY DEMINISHED IN RIGHT LOWER LOBE ALTHOUGH IMPROVED SINCE LAST ASSESSMENT BY THIS RN. 96-100% ON ROOM AIR PER CONTINIOUS PULSE OXIMETER. PT DEMONSTRATES. USE OF I.S. REACHING 1500-1600ML X5. NO CREPITUS NOTED TO BACK OR RIGHT CHEST WALL. HEART TONES REGULAR. HR 80'S. +1 PITTING EDEMA NOTED TO RIGHT LOWER LEG/[place]/FOOT. GENERALIZED EDEMA NOTED TO RIGHT KNEE AND THIGH WELL RIGHT BACK. RIGHT LIGHT MUCH LESS TIGHT WITH PALPATION THAN THIS RN'S LAST ASSESSMENT. GOWN ALSO WET WITH RED DRAINAGE, CHANGED. PT CONTINUES RESTING IN BED. NO ADDITIONAL NEEDS AT THIS TIME. CALL LIGHT WIHTIN REACH. BED RAILS UP.
--- NOTE | 2022-03-06 09:20 | NUR ---
PATIENT'S RIGHT LEG REPOSITIONED ON PILLOW ELEVATION.
--- NOTE | 2022-03-06 09:35 | NUR ---
THIS RN TO ROOM TO CHECK ON PT. PT AWAKE, ALERT AND ORIENTED. PT TALKING WITH HIS ON THE PHONE. PT REPORTS FEELING "A LITTLE UNCOMFORTABLE." DR PAULSON UPDATED ON PT ASSESSMENT AND LABS. NO NEW ORDERS AT THIS TIME. PT REQUESTS TO GET UP TO WALK AND UP TO CHAIR. PT UP WITH 1 PERSON ASSIST AND FWW TO AMBULATE AROUND ROOM X1 LAP AND THEN UP TO CHAIR. PT DENIES DIZZINESS BUT REPORTS FEELING "OUT OF BREATH." PT REPORTS RIGHT THIGH PAIN AT 3/10 WITH AMBULATION AND 1/10 ONCE RESTING UP TO CHAIR. PT REPORTS 2/10 RIGHT BACK PAIN WITH WALKING AND 0/10 ONCE RESTING IN CHAIR. PT EATING BREAKFAST. PO FLUIDS ENCORUAGED. NO ADDITIONAL NEEDS AT THIS TIME. CALL LIGHT WITHIN REACH.
--- NOTE | 2022-03-06 10:30 | NUR ---
PT FINISHED WORKING WITH PHYSICAL THERAPY. THIS RN TO ROOM TO CHECK ON PT. PT REMAINS UP TO CHAIR. PT REPORTS 2/10 BACK PAIN AFTER PHYSICAL THERAPY ADN 0/10 RIGHT THIGH PAIN. DICLOFENAC JELL/CREAM OFFERED. PT DECLINES. PT ASSISTED WITH REPOSITIONING IN CHAIR AND STATES THIS "HELPS." PT ATE YOGURT AND PART OF A PROTEIN SHAKE FOR BREAKFAST. NO ADDITIONAL REQUESTS OR COMPLAINTS. CALL RHONDA KELLY.
--- NOTE | 2022-03-06 11:25 | NUR ---
THIS RN TO ROOM WITH DR PAULSON FOR ROUNDS. STAND BY ASSIST BACK TO BED PER PT REQUEST. PT REPORTS INCREASED BACK PAIN NOW AT 08/24. GRIMICING NOTED. DR. PAULSON STATES TO GIVE NORCO NOW. PAIN MANAGEMENT EDUCATION DONE WITH PT. DRESSING REMOVED BY MD, PHOTOGRAPHS TAKEN AND NEW DRESSING PLACED. MD UPDATED ON DRAINAGE. ADDITIONAL 12ML BY WEIGHT FOUND IN CHUX, CHUX CHANGED. PT CONTINUES RESTING IN BED. RIGHT LEG ELEVATED ON PILLOWS. MD STATES PT NO LONGER NEEDS CONTINOUS PULSE OX MONITORING. NEW DRESSING C/D/I AT THIS TIME. NO ADDITIONAL NEEDS CALL LIGHT WITHIN REACH. BED RAILS UP.
--- NOTE | 2022-03-06 11:48 | NUR ---
PTS ROSA ISELA CALLED AND UPDATED ON PTS STATUS AND PLAN OF CARE. GREATER THAN 30 MINUTES SPENT ON THE PHONE WITH ROSA ISELA EXPLAINING PTS STATUS AND PLAN OF CARE. MULTIPLE PT ASSESSMENTS AND CONDITIONS EXPLAINED TO ROSA ISELA. AGA VERBALIZES UNDERSTANDING OF PLAN OF CARE AND STATES HER QUESTIONS HAVE BEEN ANSWERED. CASE MANAGEMENT UPDATED REGARDING ROSA ISELA'S QUESTIONS/CONCERNS. CASE MANAGEMENT STATES THEY WILL CONTACT PTS SOON.
--- NOTE | 2022-03-06 12:44 | NUR ---
THIS RN TO ROOM TO CHECK ON PT. PT RESTING IN BED WITH EYES CLOSED, HEAD OF BED ELEVATED TO 20 DEGREES, RIGHT LEG ELEVATED ON PILLOWS. RESPIRATIONS EVEN AND UNLABORED. PT ALLOWED TO REST. CALL LIGHT WIHTIN REACH. BED RAILS UP.
--- NOTE | 2022-03-06 13:45 | NUR ---
AFTERNOON ASSESSMENT DUE. PT RESTING IN BED, FINISHED WITH LUNCH. PT ALERT AND ORIENTED TO ALL. PT REPORTS 0/10 PAIN IN RIGHT THIGH AND 1/10 PAIN IN BACK. PT STATES HE IS VERY COMFORTABLE AT THIS TIME. PT DENIES [place]. PT RESPONDING TO ALL QUESTIONS NORMALLY AND CARRIES ON A CONVERSATION WITH NORMAL WORD FINDING AND PACE OF CONVERSATION. BARTENDER HELPER STRENGTH EQUAL BILATERALLY. STRONG PLANTAR AND DORSI FELXION BILATERALLY WITH NO INCREASED PAIN DURING FELXION PASIVE OR INTENTIONAL. NO INCREASED PAIN NOTED TO RIGHT THIGH WITH PASSIVE KNEE STRETCH. LUNG SOUNDS CLEAR THROUGHOUT AND AIR MOVEMENT IN RIGHT LOWER LOBE REMAINS DEMINISHED BUT IMPROVING. OXGYEN SATURATION OF 99% ON ROOM AIR. PT DEMONSTRATES USE OF I.S. REACHING 1600ML X5. PT REPORTS HE HAS BEEN DOING BREATHING EXERCISES AND MEDITATION PER "MRACO FLAKO" INSTUCTION. EDMA TO RIGHT LEG IMPROVING. +1 CONTINUES IN RIGHT LOWER LEG, MILDY IMPROVED. RIGHT UPPER LEG REMAINS SOFT WITH PALPATION AND RIGHT KNEE SWELLING HAS MUCH IMPROVED. RIGHT SCROTUM NOTED TO BE SWOLLEN LIKELY DEPENDANT EDEMA. RIGHT BACK CONTINUES TO HAVE MILD SWELLING, NO CREPITUS NOTED. PT REMAINS UNABLE TO LIFT RIGHT LEG STRAIGHT OFF THE BED BUT IS OTHERWISE STRONG. 3CM BRUISE NOW NOTED ON RIGHT UPPER THIGH. RIGHT THIGH DRESSING SHOWS SMALL AMOUNT OF RED SHADOWING, MONITORING, CHUX UNDER PATIENT CLEAN AND DRY AT THIS TIME. EDUCATION DONE WITH PT REGARDING CARES, PLAN, RECOVERY, LAB VALUES, AND EXPECTED OUTCOMES. PT VERBALZIES UNDERSTANDING AND STATES HIS QUESTIONS HAVE BEEN ANSWERED. NO ADDITIONAL REQUESTS OR COMPLAINTS. CALL LIGHT WITHIN REACH. BED RAILS UP.
--- NOTE | 2022-03-06 14:15 | NUR ---
CT WITH CONTRAST ORDERED, CONFIRMED WITH DR. PAULSON THAT CT SHOULD BE DONE WITH CONTRAST. PT UPDATED ON PLAN OF CARE.
--- NOTE | 2022-03-06 14:36 | NUR ---
CM YON IN WITH PT. WILL CHECK BACK
--- NOTE | 2022-03-06 14:45 | NUR ---
Called Silas pts after notified by staff she is requesting a call. Called and spoke with and she is stating pt need transportation as he now thinks he would like placement in [place] and he has to have transportation. I attempted to find out from where pt is wanting to go and let her know this will require a Dr. orders. She repeatedly tells me I am not up todate as this has been arranged and I am unaware of what is going on. Let her know I am looking in the chart, pt has not been discharged and there are 0 orders for this pt. I asked her several times where the pt would like to go and she cont. to tell me I am not aware of what is going on. Let her know I will speak with pt and find out where he wants to go and check for bed availability. She cont. to state she was told he has to go by medical transport. I again let her know I have not heard of this, but will check with facility when I find out if this is their policy. In and spoke with pt and he states he spoke with a cousin, they recommended a swing bed program at [facility] in [place], [place] where he lives. He also states he thinks he needs medical transport. Let him know I will check and see if this is the policy. I also asked if there is anywhere else he is agreeable to go as beds can be difficult to find at this time. He states there is a ltc facility in [place], but does not know their name. Let him know I will call and check.
--- NOTE | 2022-03-06 14:50 | NUR ---
CT ARRIVED TO TAKE PT FOR IMAGING. THIS RN TO CT WITH PT. PT TRASFERS SELF TO CT TABLE WITH SLIDE TRANSFER. INCREASED PAIN IN BACK TO 3/[address] PERFORMED. PT TRANSFERED BACK TO BED WITH SLIDER BOARD. PT REPORTS 1/10 PAIN IN BACK AND 0/10 PAIN IN RIGHT THIGH. PT BACK TO ROOM WITH THIS RN BY BED. PT ENCORUAGED TO DRINK WATER. ICE WATER REFILLED. PT DENIES ADDITIONAL REQUESTS OR COMPLAINTS. SCD TO LEFT LEG IN PLACE. CALL LIGHT WITHIN REACH. BED RAILS UP.
--- NOTE | 2022-03-06 15:40 | NUR ---
Called and spoke with Britta from [facility]. They do have beds open and will review his chart. She requests a copy of his medicare card and most of the chart. Let her know I will fax chart when PT note is completed. If they accept pt they will need a covid test. Faxed face sheet, medicare care, ER note, H&P, covid test, H&P from surgeon, PT eval, consult from Dr. Truong, complex wound assessment, and pictures of wound.
--- NOTE | 2022-03-06 15:42 | NUR ---
PT HERE FOR FRACTURES RELATED TO RECENT TRAUMA. PT UP WITH STAND BY ASSIST AND FRONT WHEEL WALKER TO CHAIR AND AROUND ROOM THIS SHIFT. PT MORE LETHARGIC AND TIRED THIS SHIFT. NOTED THAT H/H VALUES ARE TRENDING DOWN, REPEAT LABS IN THE MORNING. CT THIS SHIFT OF RIGHT THIGH WITH CONTRAST. PT TOELRATING REGULAR DIET WITH MINIMAL APPITITE. PO FLUIDS ENCOURAGED. PT REPORTS 0-4/10 PAIN THIS SHIFT. PRN PAIN MEDICATIONS GIVEN. DRESSING TO RIGHT THIGH CHANGED BY DR. PAULSON THIS SHIFT. PHOTOGRAPHS OF WOUND TAKEN AND ON CHART. RED DRAINAGE CONTINUES LEAKING FROM RIGHT THIGH WOUND. DRESSING CURRENTLY ~5% SATURATED WITH RED DRAINAGE. CHUX IN PLACE UNDER RIGHT THIGH. CMS INTACT TO BILATERAL LOWER EXTREMITIES THOUGHOUT SHIFT WITH STRONG PULSES NOTED. LUNG SOUNDS CLEAR AND AIR FLOW TO RIGHT LOWER LOBE IMPROVING. CPOX DC'D PER MD ORDER AND OXGYEN SATUARTIONS REMAIN ABOVE 96% ON ROOM AIR. PT DENIES NAUSEA THIS SHIFT. BRUISING BEGING TO SHOW ON RIGHT THIGH. SWELLING NOTED TO SCROTUM, RIGHT LOWER EXTREMITY AND RIGHT BACK. NO CREPITUS NOTED THROUGHOUT SHIFT. PT VOIDING QUANTITY SUFFICIENT. PT USES CALL LIGHT AND MAKES NEEDS KNOWN.
--- NOTE | 2022-03-06 16:44 | NUR ---
THIS RN TO ROOM TO CHECK ON PT. PT RESTING IN BED. REPORTS 2/10 BACK PAIN. PT REPOSITIONED AND BOOSTED IN BED WHICH PT STATES "HELPS." PT DENIES NEED FOR PAIN MEDICATION. RIGHT LEG REMAINS ELEVATED ON PILLOWS. PT REPORTS 0/10 PAIN IN RIGHT THIGH. PT HAS VOIDED 600ML CLEAR YELLOW URINE. ICE WATER REFILLED. NO ADDITIONAL NEEDS AT THIS TIME. PT TALKING WITH FRIEND ON THE PHONE. CALL LIGHT WITHIN REACH. BED RAILS UP.
--- NOTE | 2022-03-06 16:50 | NUR ---
Notified pt I have sent his chart the [facility] and they will review. They do not require medical transport. may transport him if she desires.
--- NOTE | 2022-03-06 17:40 | NUR ---
THIS RN TO ROOM TO CHECK ON PT. PT RESTING IN BED EATING DINNER. PT HAS MINIMAL APPITTIE BUT TAKES A FEW BITES OF DINNER. PTS AT BEDSIDE. GREAT THAN 20 MINUTES SPENT WITH PTS ROSA ISELA DISCUSSING PLAN OF CARE. ROSA ISELA VERBALIZES UNDERSTANDING OF PLAND OF CARE AND STATES HER QUESTIONS HAVE BEEN ANSWERED. PT REPORTS 2/10 PAIN IN BACK AND 0/10 PAIN IN RIGHT THIGH. PT BEGINING TO HAVE WORD SALAD AGAIN AND DIFFICULTY FINDING THE WORDS HE WANTS. NEURO ASSESSMENT OTHERWISE WNL. PT CAN FIND WORDS BUT OFTEN STUMBS ON WHAT HE IS TYRING TO SAY. PT AWARE THAT HIS WORDS ARE CONFUSED AND STATES HE IS "FRUSTRATED" WITH LACK OF WORDS. PT STATES "IT REALLY WORRIES ME." NO ADDITIONAL NEEDS AT THIS TIME. CALL LIGHT Ounce LabsIN REACH. BED RAILS UP.
--- NOTE | 2022-03-06 17:43 | NUR ---
DR. PAULSON CALLED AND UPDATED ON PT STATUS AND ASSESSMENT INCLUDING BLOOD PRESSURE AND HELD MEDICATIONS. DR. PAULSON STATES TO HAVE HOSPITALIST CONTINUE FOLLOWING BLOOD PRESSURE AND PTS HOME MEDICATIONS. ROPE CLEANER UPDATED. ORDERS GIVEN TO FLUSH PEG TUBE QDAY WITH ONE SYRINGE OF TAP WATER, ORDERS ENTERED. ORDERS ALSO GIVEN TO DC BED REST ORDER. ORDERS ADJUSTED. REPEAT BACK PERFORMED FOR ALL ORDERS.
--- NOTE | 2022-03-06 18:42 | NUR ---
THIS RN TO ROOM TO CHECK ON PT. PT RESTING IN BED VISITING WITH . PTS INSISTS THAT DICLOFENAC CREAM AND ARNICA BE RETURNED TO HER IMMEDIATLY. PT AGREES THAT IT IS OK TO RETURN THESE MEDICATIONS TO HIS HE DOES NOT FEEL THE NEED FOR THEM. ARNICA FOUND IN PTS CUBBY IN THE PIXIS. UNABLE TO FIND DICLOFENAC CREAM. PHARMACIST CALLED AND IS ALSO UNABLE TO LOCATE MEDICATION. PT REPORTS HIS PAIN IS WELL CONTROLLED AND DENIES ADDITIONAL NEEDS AT THIS TIME. NO ADDITIONAL WORD SALAD NOTED AT THIS TIME. PT ABLE TO COMMUNICATE CLEARLY AND NERUOLOGICAL EXAM REMAINS NEGATIVE. NO ADDITIONAL REQUESTS OR COMPLAINTS. CALL LIGHT WITHIN REACH. BED RAILS UP.
--- NOTE | 2022-03-06 19:01 | NUR ---
DR. PAULSON CALLED AND UPDATED ON PTS STATUS AND WORD FINDING PROBLEMS. NO NEW ORDERS AT THIS TIME BUT FOR ENCOUARGING PT TO REST. ORDERS GIVEN FOR NPO AT MIDNIGHT AND LR AT 85ML/HR STARTING AT MIDNIGHT FOR POSSIBLE WOUND CLOSURE TOMORROW. ORDERS ENETERED, REPEAT BACK PERFORMED. NO ADDITIONAL NEW ORDERS AT THIS TIME.
--- NOTE | 2022-03-06 19:10 | NUR ---
RECEIVED REPORT FROM BRANDON RODRIGUEZ AND STEPHANIE RODRIGUEZ. PT IS RESTING IN BED WITH NO NEEDS AT THIS TIME. CALL LIGHT IS WITHIN REACH.
--- NOTE | 2022-03-06 21:05 | NUR ---
PERFORMED [employer] HCM DEVELOPER (SEE EMAR) AND ASSESSMENT. PT IS RESTING IN BED. SLIGHTLY DROWSY BUT ORIENTED X4. REPORTS PAIN 3/10 IN RIGHT THIGH. PRN TYLENOL GIVEN PER PT REQUEST. LUNG SOUNDS ARE CLEAR THROUGHOUT AND ON RA WITH O2 SAT 96%. PT REPORTS NO DIFFICULTY BREATHING AND IS ABLE TO TAKE FULL, DEEP BREATHS. WOUND HAS SEROSANGINOUS DRAINAGE AND CHUCKS PAD WAS REPLACED, WEIGHED FOR TOTAL OF 30. LEG IS ELEVATED ON PILLOWS. PULSES PRESENT THROUGHOUT. PT STRENGHT INTACT IN ALL EXTREMETIES, SLIGHT DIFFICULTY W/MVMNT IN RT LEG DUE TO INCISION. PT USES URINAL AT BEDSIDE. DECREASED APPETITE BUT PT TOLERATES ENSURES FOR NUTRITION. NO FURTHER NEEDS AT THIS TIME, CALL LIGHT WITHIN REACH.
--- NOTE | 2022-03-06 22:30 | NUR ---
ASSISTED PT WITH 1PA W/FWW AMBULATION FROM BEDSIDE COMMODE BACK TO BED. PT HAS WEAKNESS IN LEGS BUT MORE PREDOMINATELY IN RIGHT KNEE. EDEMA PRESENT IN BLE +2. WEAK/THREADY PULSES IN BLE BUT SKIN IS WARM/DRY. PT STATES NO NAUSEA, NUMBNESS/TINGLING PRESENT. PAIN IS 0/10 PER PT. VSS. POWDER PLACED IN VIVI AREA AND UNDER BREASTS. PT IS A&O. PT EXPERIENCES SOB W/AMBULATION AND HAS SHALLOW BREATHS. PT IS UNABLE TO TAKE DEEP BREATHS WHEN INSTRUCTED FOR LOWER LUNG ASSESSMENT, THEREFORE THESE AREAS ARE MARKED DIMINISHED AND UPPER LOBES ARE CLEAR. BRUISING PRESENT ON PT LEFT SIDE FROM FALL AND ABRASION ON HAND. PILLOW PLACED UNDERNEATH LEGS TO ELEVATE AND REDUCE EDEMA. CALL LIGHT WITHIN REACH, NO FURTHER NEEDS AT THIS TIME.
--- NOTE | 2022-03-07 00:01 | NUR ---
PT IS CURRENTLY SLEEPING. REMOVED ENSURE AND WATER FROM BEDSIDE DUE TO NPO STATUS AFTER MIDNIGHT.
--- NOTE | 2022-03-07 03:25 | NUR ---
ROUNDED ON pt THIS RN PASSED pt ROOM AND HEARD pt AWAKE, SOMEWHAT RESTLESS. pt REPORTS INABILITY TO SLEEP, BUT DENIES NEEDS OR REQUESTS WHEN ASKED. RLE REMAINS ELEVATED IN BED WITH PILLOW AND CHUCKS UNDER RIGHT LEG DRESSING, SMALL AMOUNT SHADOWING ON CHUCKS AND OUTER PAULINE DRESSING SEROSANGUINEOUS IN COLOR- UPDATED PRIMARY RN INNA. CHUCKS WEIGHED AND REPLACED EARLIER IN SHIFT.IV SITE WNL, FLUIDS INFUSING DIRECTED. STRONG PEDAL PULSE IN RLE. CALL LIGHT IN REACH.
--- NOTE | 2022-03-07 06:00 | NUR ---
PERFORMED VS AND ASSESSMENT. NO ACUTE CHANGES. PT DEMONSTRATES GRIMACING AND REPORTS PAIN 3/10, BUT REFUSES TYLENOL. CHUCKS CHANGED DUE TO SEROSANGUINOUS DRAINAGE, 20 ML OUTPUT WEIGHED AND RECORDED. SHADOWING APPEARS SIMILAR TO START OF SHIFT. WILL CONTINUE TO MONITOR SHADOW DRAINAGE. CALL LIGHT WITHIN REACH.
--- NOTE | 2022-03-07 06:10 | NUR ---
PT REPORTED PAIN 3/10 AND ALSO DEMONSTRATED GRIMACING. PRN TYLENOL OFFERED TWICE BUT PT DECLINED BOTH TIMES. OFFERED PRN LIDOCAINE PATCH AND PT ACCEPTED. PATCH PLACED ON LEFT SIDE OF BACK. PT NOW RESTING IN BED, CALL LIGHT WITHIN REACH. NO FURTHER NEEDS AT THIS TIME.
--- NOTE | 2022-03-07 07:01 | NUR ---
UNEVENTFUL NIGHT FOR PT. PT SLEPT MAJORITY OF THE NIGHT. PRN TYLENOL WAS GIVEN AT 2125 PER PT REQUEST FOR 3/10 PAIN IN RT LEG, AND LIDOCAINE PATCH PLACED AT 0604 ON LEFT SIDE (TYLENOL REFUSED BY PT). CHUCKS CHANGED X2 FOR SEROSANGUINOUS DRAINAGE, RECORDED 30ML & 20 ML. INTAKE AND OUTPUT SUFFICIENT. PT REPORTS NO NAUSEA, DIZZINESS, OR CHEST PAIN. VSS. BEDSIDE FLUIDS TAKEN AWAY AND PT EDUCATED ON NPO AFTER MIDNIGHT FOR SURGERY PREP. LR RUNNING AT 85 MLS/HR INTO PATENT LAC. PT ENCOURAGED TO USE CALL LIGHT FOR NECESSARY NEEDS. PT FREQUENTLY USES IS ACCORDINGLY.
--- NOTE | 2022-03-07 07:23 | NUR ---
Report from MICHAEL Maza and MICHAEL Linares. Patient lying in bed with eyes closed, responds to staff. Denies needs at this time. States pain has decreased since application of lidocaine patch. Denies other needs. Call light in reach, bed rails up X2.
--- NOTE | 2022-03-07 10:20 | NUR ---
Taken to surgery by Nida Floyd RN, in bed.
--- NOTE | 2022-03-07 10:32 | NUR ---
Patient lying in bed, assessment completed. States pain is tolerable at this time. Dressing to right thigh remains with moderate amount of sanguious drainage. Denies other needs at this time. Call light in reach.
--- NOTE | 2022-03-07 10:59 | NUR ---
PT USES CALL LIGHT TO NOTIFY RN OF URGE TO VOID. PT PROVIDED URINAL AND PRIVACY, ABLE TO VOID 150 MLS CLEAR, YELLOW URINE WITH NO PROBLEMS.
--- NOTE | 2022-03-07 11:37 | NUR ---
03/07/22 1137 Valentina Crawley 1132-PATIENT ARRIVED TO PACU ON RA REACTIVE TO VERBAL STIMULI REMAINS VERY DROWSY DENIES PAIN OR NAUSEA. DRESSING TO RIGHT THIGH CDI GOOD WARMTH AND CAP REFILL TO RIGHT FOOT. PALPABLE RIGHT PEDAL PULSE. IVF INFUSING. SR WITH BBB.
--- NOTE | 2022-03-07 12:00 | NUR ---
Patient arrives from OR on bed. Alert and oriented X4. Dressing to right leg in place, no drainage to site noted. Rating pain 1/10 at this time. Otherwise, no change from AM assessment. in room, Dr. Lal discusses case with patient and spouse. Patient sitting up in bed to eat lunch at this time.
--- NOTE | 2022-03-07 12:34 | NUR ---
Spoke with Dr. Truong and pt will be ready for dc tomorrow. Called and spoke with Ekaterina at [facility] and she received the chart I sent. She is waiting for the to review and will let me know if they can accept this pt. She states they will need a Doc to Doc report if theyt accept.
--- NOTE | 2022-03-07 13:00 | NUR ---
Notifed Dr. Alexi Tobar from [facility] called and they will accept this pt. They request Dr Truong Doc to Doc call with Dr. Horn [phone] Truong as he has returned to surgery.
--- NOTE | 2022-03-07 13:01 | NUR ---
PAIN 2/10, SEE EMAR. ALERT AND ORIENTED. STATES FOOD IS SITTING WELL, NO NAUSEA. DRESSING REMAINS C/D/I.
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
--- NOTE | 2022-03-07 13:16 | NUR ---
INFORMED BY M/S STAFF PT HAS BEEN TAKEN TO [place] FOR SURGERY. WILL FOLLOW
--- NOTE | 2022-03-07 13:20 | NUR ---
Received text from Dr. Truong he has completed doc to Doc report and completed orders I had printed for him. Pt will dc tomorrow.
--- NOTE | 2022-03-07 14:04 | NUR ---
VITALS/I&O'S RECORDED. PT STATES PAIN IS TOLERABLE AT THIS TIME. RATES LEG 0.5/10 AND BACK A 2/10. DECLINED PAIN MEDICAITON. HUNG NEW BAG OF LR RUNNING AT 85ML/HR. NO DRAINAGE VISABLE FROM WOUND DRESSING ON RIGHT THIGH. PT DENIES NAUSEA AND IS RESTING IN BED WITH AT BEDSIDE. CALL LIGHT IS WITHIN REACH. PATIENT AND STATE NO FURTHER NEEDS AT THIS TIME.
--- NOTE | 2022-03-07 14:40 | NUR ---
In and spoke with pt and his . UPdated I have spoke with Dr. Truong and pt will be able to discharge tomorrow. UPdated [facility] will accept him for rehab if he would still like to go there. Pt states yes. Let him know all orders have been sent. Discussed [facility] will assist him with [facility] if he qualifies. has multiple questions about billing and how to get insurance. Asked her to stop at billing when she leaves and they can give her information on how to send his insurance through the [facility] if he has it. She also asks about itemized billing and I again referred her to the front. Pt will need a walker, but has medicare A and it does not cover equipment. Gave the the address for [facility] and let her know I have called them. They have a walker available for $35 if they would like it. Let her know, they will close at 4pm. will pickup. Plan remains for pt to discharge tomorrow am after seen by Dr. Truong.
--- NOTE | 2022-03-07 15:02 | NUR ---
REMAINS ON ROOM AIR. ALERT AND ORIENTED. IV INFUSING. STATES PAIN HAS IMPROVED AND IS "TOLERABLE." DECREASED DIFFICULTY FINDING WORDS NOTED AT THE CURRENT TIME. DRESSING TO RIGHT LEG REMAINS C/D/I.
--- NOTE | 2022-03-07 16:13 | NUR ---
ALERT AND ORIENTED. STATES PAIN IS "GOOD" AT THIS TIME. DRESSING TO RIGHT THIGH REMAINS C/D/I. CALL LIGHT IN REACH, BED RAILS UP X2.
--- NOTE | 2022-03-07 16:34 | NUR ---
RT COLLECTED RAPID COVID 19 SWAB AT THIS TIME WITH NO COMPLICATIONS.
--- NOTE | 2022-03-07 16:38 | NUR ---
Fasciotomy site closed today. Vitals WNL. PRN [facility] given X1. Remains on IV fluids. Tolerating regular diet. Ambulate with staff in hallway X1 this afternoon. Plan for DC tomorrow to facility in [place], [place].
--- NOTE | 2022-03-07 19:10 | NUR ---
RECEIVED REPORT FROM TYRESE RODRIGUEZ. PT IS RESTING IN BED. INCISION SITE WRAPPED WITH PAULINE BANDAGE AND DRESSING IS CLEAN/DRY/INTACT. PILLOW PLACED UNDER PT'S KNEE PER PT REQUEST. PT REPORTS PAIN AT 2/10 IN BACK AND RIGHT THIGH. CALL LIGHT WITHIN REACH, NO FURTHER NEEDS AT THIS TIME.
--- NOTE | 2022-03-07 20:40 | NUR ---
IN ROOM FOR PAINT MIXER MACHINE, VS, AND PT ASSESSMENT. VSS. PT REPORTS PAIN 2/10 AT INCISION SITE/BACK FROM SURGERY AND INJURIES, REQUESTS PRN NORCO (SEE EMAR), PRN MOTRIN AND TYLENOL REFUSED. INCISION DRESSING APPEARS CLEAN/DRY/INTACT WITH PAULINE BANDAGE. RT KNEE IS ELEVATED UNDER PILLOW. PT IS A&O X4, NOT EXPERIENCING ANY TINGLING/NUMBNESS IN ANY EXTREMETIES AND SENSATION IS INTACT. STRENGTH IS EQUAL THROUGHOUT. LUNGS ARE CLEAR IN UPPER LOBES AND DIMINISHED IN LOWER, PAIN WITH DEEP BREATHING IN RIBS. LR RUNNING ACCORDINGLY PER ORDERS INTO PATENT LFA IV. CALL LIGHT WITHIN REACH, NO FURTHER NEEDS AT THIS TIME.
--- NOTE | 2022-03-07 22:15 | NUR ---
ADDED ORDER PER POST SX PROTOCAL FOR CONTINUOUS PULSE OXIMETRY. PLACED ON LEFT HAND AT PT REQUEST. CURRENT O2 SAT AT 98%. CALL LIGHT WITHIN REACH, NO FURTHER NEEDS AT THIS TIME.
--- NOTE | 2022-03-08 01:11 | NUR ---
pt RESTING IN BED, EYES CLOSED. RR EVEN AND UNLABORED. NO SIGNS OF DISTRESS. CALL LIGHT WITHIN REACH.
--- NOTE | 2022-03-08 01:51 | NUR ---
PERFORMED VITALS AND I/O'S. NO ACUTE CHANGES TO FIRST ASSESSMENT. PAIN IS 1/10 IN RIGHT THIGH AND BACK. DRESSING IS INTACT/CLEAN/DRY. RIGHT LEG IS ELEVATED ON PILLOW. NEW BAG OF LR HUNG AND INFUSING DIRECTED INTO LEFT FA. LUNGS REMAIN CLEAR ON RA, W/PULSE O2 OF 97%. FRESH ICE WATER PROVIDED, CALL LIGHT WITHIN REACH, PT IS RESTING IN BED, NO FURTHER NEEDS AT THIS TIME.
--- NOTE | 2022-03-08 03:40 | NUR ---
PILLOW PLACED UNDER RIGHT HIP, PILLOW ALREADY UNDER RLE. pt REPORTS ABILITY TO MAKE POSITION CHANGES AND TURN IN BED. NO ADDITIONAL NEEDS OR CONCERNS, CALL LIGHT IN REACH.
--- NOTE | 2022-03-08 05:16 | NUR ---
pt RESTING IN BED, EYES CLOSED. RR EVEN AND UNLABORED. NO SIGNS OF DISTRESS. CALL LIGHT WITHIN REACH.
--- NOTE | 2022-03-08 05:35 | NUR ---
LAB IN ROOM FOR BLOOD DRAW. VS RECORDED. I/O'S RECORDED. PT RESTING IN BED WITH PILLOW UNDER RT LEG. PAULINE BANDAGE IS DRY/INTACT. PAIN REPORTED AT 06/26. CALL LIGHT WITHIN REACH, NO FURTHER NEEDS AT THIS TIME.
--- NOTE | 2022-03-08 06:08 | NUR ---
THIS RN REVIEWED AND AGREES WITH [employer] ADMINDANIE KEITH'S CHARTING FOR THE SHIFT.
--- NOTE | 2022-03-08 06:20 | NUR ---
UNEVENTFUL NIGHT FOR PT. PT SLEPT MAJORITY OF THE NIGHT. PRN NORCO WAS GIVEN AT 0 PER PT REQUEST FOR 2/10 PAIN IN RT LEG (TYLENOL AND IBUPROFEN REFUSED BY PT). INCISION WRAPPED WITH PAULINE BANDAGE AND CLEAN/DRY/INTACT. INTAKE AND OUTPUT SUFFICIENT. PT REPORTS NO NAUSEA, DIZZINESS, OR CHEST PAIN. VSS. LR RUNNING AT 85 MLS/HR INTO PATENT LAC. PT ENCOURAGED TO USE CALL LIGHT FOR NECESSARY NEEDS. PT FREQUENTLY USES IS ACCORDINGLY ALONG WITH DEEP BREATHING. PT SCHEDULED TO BE DISCHARGED TODAY TO FACILITY IN [place], [place].
--- NOTE | 2022-03-08 06:25 | NUR ---
ROUNDED ON pt, pt RESTING IN BED WITH EYES CLOSED. RR EVEN AND UNLABORED, pt AWOKE TO VOICE. COCCYX AND BUTTOCKS ASSESSED, NO REDDNESS OR SIGNS OF SKIN BREAKDOWN NOTED. SKIN INTACT. NO NEEDS OR CONCERNS VERBALIZED BY pt, CALL LIGHT IN REACH.
--- NOTE | 2022-03-08 07:23 | NUR ---
Report from MICHAEL Johnson and MICHAEL Linares. Lying in bed with eyes closed, respirations even and unlabored. Allowed to rest at this time. Call light in reach.
--- NOTE | 2022-03-08 08:00 | NUR ---
Covid test added to packet and taken to desk to go with pt on dc. Spoke with Dr. Truong, pt will dc this am. No further needs. Pt will go to [facility] in his home town.
--- NOTE | 2022-03-08 08:42 | NUR ---
Patient alert and oriented, sitting up in recliner. in room. Patient states he is not feeling as well as yesterday, but pain is currently tolerable. AM medications administered. States he does not want senna because he is going to be traveling today. Informed ferrous sulfate could cause constipation and to be sure he takes continues to take it after today. Call light in reach.
[2022-03-08] MEDS ORDERED: HYDROCODON-ACE1 EA10 PO (10:52)
[2022-03-08] MEDS ORDERED: ACETAMINOPHEN500 MG PO (10:52)
[2022-03-08] MEDS ORDERED: FERROUS SULFAT325 M2 PO (10:52)
[2022-03-08] MEDS ORDERED: IBUPROFEN600 MG PO (10:52)
[2022-03-08] MEDS ORDERED: STIMULANT LAXA1 EACH PO (10:52)
--- NOTE | 2022-03-08 11:49 | NUR ---
DC instructions and prescriptions given to patient. Verbalizes understanding. Denies any questions at this time. Staff in to assist with dressing for DC to home.
--- NOTE | 2022-03-08 12:59 | NUR ---
REPORT CALLED TO MICHAEL GUEVARA AT [facility] IN [place], [place].
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
== END 2022-03-08 12:45 | disposition swing bed (61) | DRG 982 ==
LOC: ED 16:39 → MS 16:41
PROVIDERS: ADMIT Surgery; ATTEND Surgery
PROC: 0KNQ0ZZ Release Right Upper Leg Muscle, Open Approach (ICD-10-PCS; 2022-03-07)
PROC: 0KNQ0ZZ Release Right Upper Leg Muscle, Open Approach (ICD-10-PCS; principal; 2022-03-07 11:00)
DX: T79.A21A Traumatic compartment syndrome of right lower extremity, initial encounter (principal); S27.321A Contusion of lung, unilateral, initial encounter; D62 Acute posthemorrhagic anemia; S22.41XA Multiple fractures of ribs, right side, initial encounter for closed fracture; S22.049A Unspecified fracture of fourth thoracic vertebra, initial encounter for closed fracture; S22.059A Unspecified fracture of T5-T6 vertebra, initial encounter for closed fracture; S22.069A Unspecified fracture of T7-T8 vertebra, initial encounter for closed fracture; S22.079A Unspecified fracture of T9-T10 vertebra, initial encounter for closed fracture; S27.1XXA Traumatic hemothorax, initial encounter; W55.22XA Struck by cow, initial encounter; Z98.890 Other specified postprocedural states
CPT/HCPCS: 01470; 36415; 71045; 71260; 73552; 73701; 80048; 80053; 84484; 85025; 87502; 93005; 93010; 94762; 97162; A9270; C9803; G0480; J0690; J1170; J1885; J2001; J2405; J2704; J3010; J7030; J7121; Q9967; U0003